=== PATIENT | male | born 1970 | race Caucasian/White ===

== ENCOUNTER 2017-04-04 14:58 | Inpatient (IN) | payer OTHER ==
--- NOTE | 2017-04-04 15:27 | HP ---
CIWA Score - CIWA Score Nausea/Vomitin Muscle Tremors: 3 Anxiety: 3 Agitation: 3 Paroxysmal Sweats: 2 Orientation: 0-Oriented Tacttile Disturbances: 2-Mild Itch/Numbness/Burn Auditory Disturbances: 2-Mild Harshness/Frighten Visual Disturbances: 2-Mild Sensitivity Headache: 2-Mild CIWA-Ar Total Score: 22 Admission ROS [facility] - HPI Chief Complaint: I NEED HELP TO STOP DRINKING ALCOHOL Allergies/Adverse Reactions: Allergies Allergy/AdvReac Type Severity Reaction Status Date / Time No Known Allergies Allergy Verified 04/04/17 15:15 History of Present Illness: THIS 46 YEARS OLD MALE WITH ALCOHOL DEPENDENCE,SEEKING DETOX,LAST TREATMENT [facility] IN 03/05 SEIZURE LAST 03/05 ANXIETY AND DEPRESSION LONGEST PERIOD OF SOBRIETY 3 YEARS Exam Limitations: No Limitations - Ebola screening Have you traveled outside of the country in the last 21 days: No - Review of Systems Constitutional: Chills, Loss of Appetite, Malaise, Night Sweats, Changes in sleep, Weakness EENT: reports: Nose Congestion Respiratory: reports: No Symptoms reported Cardiac: reports: Palpitations GI: reports: Diarrhea, Nausea, Vomiting, Abdominal cramping : reports: No Symptoms Reported Musculoskeletal: reports: Back Pain, Muscle Pain Integumentary: reports: Dryness Neuro: reports: Headache, Tremors Endocrine: reports: No Symptoms Reported Hematology: reports: No Symptoms Reported Psychiatric: reports: Anxious, Depressed Patient History - Patient Medical History Hx Asthma: No Hx Chronic Obstructive Pulmonary Disease (COPD): No Hx Cardiac Disorders: No Hx Hypertension: Yes (on meds.) Hx Seizures: Yes (seizure disorder last 03/05) Hx Diabetes: No Hx Gastrointestinal Disorders: No Hx Genitourinary Disorders: No Hx Sexually Transmitted Disorders: No Hx Renal Disease (ESRD): No Hx Thyroid Disease: No Hx Human Immunodeficiency Virus (HIV): No (LAST 03/05) Hx Hepatitis C: No Hx Depression: Yes (ANXIETY) Hx Suicide Attempt: No Hx Bipolar Disorder: No Hx Schizophrenia: No Other Medical History: NO SUICIDAL,NO HOMICIDAL - Patient Surgical History Past Surgical History: Yes Hx Orthopedic Surgery: Yes (Fx mandible 02/02 [facility]) - PPD History Previous Implant?: Yes Documented Results: Negative w/o proof Implanted On Prior [facility] Admission?: No PPD to be Administered?: Yes - Smoking Cessation Smoking history: Current every day smoker Have you smoked in the past 12 months: Yes Aproximately how many cigarettes per day: 6 Hx Chewing Tobacco Use: No Initiated information on smoking cessation: Yes 'Breaking Loose' booklet given: 04/04/17 - Substance & Tx. History Hx Alcohol Use: Yes Hx Substance Use: No Substance Use Type: Alcohol Hx Substance Use Treatment: Yes (03/05 [facility]) - Substances Abused Alcohol Route: Oral Frequency: Daily Amount used: 2 pints vodka Age of first use: 16 Date of Last Use: 04/04/17 Family Disease History - Family Disease History Family Disease History: Other: Father (ALCOHOL) Admission Physical Exam [facility] - Vital Signs Vital Signs: Vital Signs Temperature 97.2 F L 04/04/17 15:25 Pulse Rate 104 H 04/04/17 15:25 Respiratory Rate 20 04/04/17 15:25 Blood Pressure 138/74 04/04/17 15:25 O2 Sat by Pulse Oximetry (%) - Physical General Appearance: Yes: Moderate Distress, Tremorous, Irritable, Sweating, Anxious HEENTM: Yes: Within Normal Limits, Normal ENT Inspection, Pharynx Normal Respiratory: Yes: Lungs Clear, Normal Breath Sounds Neck: Yes: Within Normal Limits, Supple, Trachea in good position Breast: Yes: Within Normal Limits Cardiology: Yes: Regular Rhythm, Regular Rate, S1, S2, Edema Abdominal: Yes: Within Normal Limits, Normal Bowel Sounds, Non Tender, Flat, Soft Genitourinary: Yes: Within Normal Limits Back: Yes: Muscle Spasm Musculoskeletal: Yes: Back pain, Muscle Pain Extremities: Yes: Within Normal Limits, Normal Inspection, Normal Range of Motion Neurological: Yes: web specialist II-XII NML intact, Alert, Motor Strength 5/5 Integumentary: Yes: Dry Lymphatic: Yes: Within Normal Limits - Diagnostic (1) Alcohol dependence with withdrawal Current Visit: Yes Status: Acute (2) Essential hypertension Current Visit: Yes Status: Acute (3) Seizure Current Visit: Yes Status: Acute (4) Nicotine dependence Current Visit: Yes Status: Acute Cleared for Admission [facility] - Detox or Rehab [facility] Level of Care: Medically Managed Detox Regimen/Protocol: Librium
[2017-04-04 15:28] VITALS: BMI 20.3
[2017-04-04] MEDS ORDERED: LOPERAMIDE HCL 2 MG CAPSULE PO PRN (15:37)
[2017-04-04] MEDS ORDERED: hydrOXYzine PAMOATE 50 MG CAPSULE (FP) PO PRN (15:37)
[2017-04-04] MEDS ORDERED: guaiFENesin/D-METHORPHAN HB 10 ML UNIT-DOSE CUPS PO PRN (15:37)
[2017-04-04] MEDS ORDERED: chlordiazePOXIDE HCL 25 MG CAPSULE PO PRN (15:37)
[2017-04-04] MEDS ORDERED: MAGNESIUM CITRATE 300 ML BOTTLE PO PRN (15:37)
[2017-04-04] MEDS ORDERED: P-EPHED 60MG/TRIPROLIDI 2.5MG TABLET PO PRN (15:37)
[2017-04-04] MEDS ORDERED: IBUPROFEN 400 MG TABLET (FP) PO PRN (15:37)
[2017-04-04] MEDS ORDERED: MAGNESIUM HYDROX 2400MG/30ML ORAL SUSPENSION 30 ML CUP PO PRN (15:37)
[2017-04-04] MEDS ORDERED: ACETAMINOPHEN 325 MG TABLET (FP) PO PRN (15:37)
[2017-04-04] MEDS ORDERED: MENTHOL/PHENOL 1 EACH UD MM PRN (15:37)
[2017-04-04] MEDS ORDERED: MAG HYDROX/AL HYDROX/SIMETH 30 ML UNIT-DOSE CUP PO PRN (15:37)
[2017-04-04] MEDS: chlordiazePOXIDE HCL 25 MG CAPSULE PO SCH ×2 (18:09→22:36)
[2017-04-04] MEDS: NICOTINE 21 MG/24 HOURS TOPICAL PATCH TD SCH (18:10)
[2017-04-04] MEDS: THIAMINE HCL 100 MG TABLET (FP) PO SCH (22:35)
[2017-04-04] MEDS: levETIRAcetam 500 MG TABLET (FP) PO SCH (22:36)
[2017-04-04 22:50] LABS: URINE APPEARANCE CLEAR; URINE BILIRUBIN NEGATIVE (NEGATIVE); URINE BLOOD NEGATIVE (NEGATIVE); URINE COLOR YELLOW; URINE GLUCOSE (UA) NEGATIVE (NEGATIVE); URINE KETONE NEGATIVE (NEGATIVE); URINE LEUK ESTERASE NEGATIVE (NEGATIVE); URINE NITRITE NEGATIVE (NEGATIVE); URINE PROTEIN NEGATIVE (NEGATIVE); URINE UROBILINOGEN NEGATIVE mg/dL (0.2-1.0)
[2017-04-05] MEDS: chlordiazePOXIDE HCL 25 MG CAPSULE PO SCH ×4 (05:47→22:10)
[2017-04-05 10:00] LABS: MCH 31.5 pg (25.7-33.7); MCHC 31.9 g/dl (32.0-35.9); MEAN CELL VOLUME 98.9 fl (80-96); MEAN PLT VOLUME 8.9 fl (7.5-11.1); PLATELET COUNT 245 K/MM3 (134-434); RDW 16.6 % (11.9-15.9); WHITE BLOOD COUNT 9.4 K/mm3 (4.0-10.0)
[2017-04-05] MEDS: amLODIPine BESYLATE 5 MG TABLET (FP) PO SCH (10:24)
[2017-04-05] MEDS: PRENATAL VITAMINS W/ FOLIC ACID TABLET (FP) PO SCH (10:24)
[2017-04-05] MEDS: levETIRAcetam 500 MG TABLET (FP) PO SCH ×2 (10:24→22:10)
[2017-04-05] MEDS: NICOTINE 21 MG/24 HOURS TOPICAL PATCH TD SCH (10:24)
[2017-04-05 10:27] LABS: ALBUMIN 3.6 g/dl (3.4-5.0); ALK PHOS 82 U/L (45-117); ANION GAP 8 (8-16); BILIRUBIN,TOTAL 1.2 mg/dL (0.2-1.0); CALCIUM 8.9 mg/dL (8.5-10.1); CO2 30 mmol/L (21-32); CREATININE 0.8 mg/dL (0.7-1.3); GLUCOSE,RANDOM 77 mg/dL (74-106); SGOT/AST 35 U/L (15-37); SGPT/ALT 32 U/L (12-78); TOT PROT 6.5 g/dl (6.4-8.2)
--- NOTE | 2017-04-05 10:41 | PN ---
[facility] CIWA - CIWA Score Nausea/Vomitin-No Nausea/No Vomiting Muscle Tremors: 4-Moderate,w/Arms Extend Anxiety: 4-Mod. Anxious/Guarded Agitation: 4-Moderately Restless Paroxysmal Sweats: 1-Minimal Palms Moist Orientation: 0-Oriented Tacttile Disturbances: 3-Moderate Itch/Numb/Burn Auditory Disturbances: 0-None Visual Disturbances: 0-None Headache: 0-None Present CIWA-Ar Total Score: 16 S Progress Note (SOAP) Subjective: ANXIETY,SWEATS,NECK PAIN SINCE THIS MORNING-SLEPT WRONGLY, COLD SWEATS. Objective: 04/05/17 10:41 Vital Signs Temperature 98.4 F 04/05/17 09:23 Pulse Rate 69 04/05/17 09:23 Respiratory Rate 18 04/05/17 09:23 Blood Pressure 132/95 04/05/17 09:23 O2 Sat by Pulse Oximetry (%) Laboratory Last Values WBC 9.4 K/mm3 (4.0-10.0) 04/05/17 07:00 RBC 4.42 M/mm3 (4.00-5.60) 04/05/17 07:00 Hgb 13.9 GM/dL (11.7-16.9) 04/05/17 07:00 Hct 43.8 % (35.4-49) 04/05/17 07:00 MCV 98.9 fl (80-96) H 04/05/17 07:00 MCH 31.5 pg (25.7-33.7) 04/05/17 07:00 MCHC 31.9 g/dl (32.0-35.9) L 04/05/17 07:00 RDW 16.6 % (11.9-15.9) H 04/05/17 07:00 Plt Count 245 K/MM3 (134-434) 04/05/17 07:00 MPV 8.9 fl (7.5-11.1) 04/05/17 07:00 Sodium 142 mmol/L (136-145) 04/05/17 07:00 Potassium 4.3 mmol/L (3.5-5.1) 04/05/17 07:00 Chloride 104 mmol/L (98-107) 04/05/17 07:00 Carbon Dioxide 30 mmol/L (21-32) 04/05/17 07:00 Anion Gap 8 (8-16) 04/05/17 07:00 BUN 12 mg/dL (7-18) 04/05/17 07:00 Creatinine 0.8 mg/dL (0.7-1.3) 04/05/17 07:00 Creat Clearance w eGFR > 60 (>60) 04/05/17 07:00 Random Glucose 77 mg/dL (74-106) 04/05/17 07:00 Calcium 8.9 mg/dL (8.5-10.1) 04/05/17 07:00 Total Bilirubin 1.2 mg/dL (0.2-1.0) H 04/05/17 07:00 AST 35 U/L (15-37) 04/05/17 07:00 ALT 32 U/L (12-78) 04/05/17 07:00 Alkaline Phosphatase 82 U/L (45-117) 04/05/17 07:00 Total Protein 6.5 g/dl (6.4-8.2) 04/05/17 07:00 Albumin 3.6 g/dl (3.4-5.0) 04/05/17 07:00 Urine Color Yellow 04/04/17 18:30 Urine Appearance Clear 04/04/17 18:30 Urine pH 8.0 (5.0-8.0) 04/04/17 18:30 Ur Specific [place] 1.023 (1.001-1.035) 04/04/17 18:30 Urine Protein Negative (NEGATIVE) 04/04/17 18:30 Urine Glucose (UA) Negative (NEGATIVE) 04/04/17 18:30 Urine Ketones Negative (NEGATIVE) 04/04/17 18:30 Urine Blood Negative (NEGATIVE) 04/04/17 18:30 Urine Nitrite Negative (NEGATIVE) 04/04/17 18:30 Urine Bilirubin Negative (NEGATIVE) 04/04/17 18:30 Urine Urobilinogen Negative mg/dL (0.2-1.0) 04/04/17 18:30 Assessment: 04/05/17 10:42 WITHDRAWAL SX Plan: CONTINUE DETOX. FLEXERIL DIRECTED.
--- NOTE | 2017-04-05 11:17 | CONSULT ---
[facility] Psychiatric Consult - Data Date of interview: 04/05/17 Admission source: [facility] Identifying data: First admission to [facility] for this 46 y/o [place]-born male seeking detox treatment on for alcohol dependence.Patient is without children,domiciled,unemployed and self sufficient. Substance Abuse History: Discussed in this interview.Mr Crooks admits to daily use of hard liquors.Refer to current [facility] report for details : Smoking history: Current every day smoker. Have you smoked in the past 12 months: Yes. Aproximately how many cigarettes per day: 6. Hx Chewing Tobacco Use: No. Initiated information on smoking cessation: Yes. 'Breaking Loose' booklet given : 04/04/17. - Substance & Tx. History. Hx Alcohol Use: Yes. Hx Substance Use : No. Substance Use Type: Alcohol. Hx Substance Use Treatment: Yes (03/05 [facility]). - Substances Abused. Alcohol. Route: Oral. Frequency: Daily. Amount used: 2 pints vodka. Age of first use: 16. Date of Last Use: 04/04/17 Medical History: Seizure disorder (on levetiracetam),hypertension and recent fracture of right mandible (fall during an ictal episode). Psychiatric History: Patient admits to a remote history of psychiatric hospitalization at [facility].Diagnosed with MDD and totally lost to follow up for many years.Mr Crooks reports past treatment with lexapro. " I have not taken that medication for a long time." No current OPD care.Patient explains that he just came back form [place] where he had taken residence for many years (reportedly returns to [facility] for medical care for his fractured jaw).No reported history of suicide attempts. Physical/Sexual Abuse/Trauma History: Patient denies. Additional Comment: No toxicology results available. Mental Status Exam - Mental Status Exam Alert and Oriented to: Time, Place, Person Cognitive Function: Good Patient Appearance: Disheveled (missing front teeth) Mood: Hopeful, Euthymic Affect: Appropriate, Normal Range Patient Behavior: Fatigued, Appropriate, Cooperative Speech Pattern: Clear, Appropriate Voice Loudness: Normal Thought Process: Intact, Goal Oriented Thought Disorder: Not Present Hallucinations: Denies Suicidal Ideation: Denies Homicidal Ideation: Denies Insight/Judgement: Poor Sleep: Poorly, Difficulty falling asleep Appetite: Good Muscle strength/Tone: Normal Gait/Station: Normal Psychiatric Findings - Problem List ([place] 1, 2,3) (1) Alcohol dependence with withdrawal Current Visit: Yes Status: Acute Qualifiers: Complication of substance-induced condition: uncomplicated Qualified Code(s ): F10.230 - Alcohol dependence with withdrawal, uncomplicated (2) Nicotine dependence Current Visit: Yes Status: Acute Qualifiers: Nicotine product type: cigarettes (3) Insomnia Current Visit: Yes Status: Acute - Initial Treatment Plan Initial Treatment Plan: Psychoeducation.Sleep hygiene.Detoxification in progress.Ambien 10 mg po hs prn.Patirosalindat is informed of risk for parasomnias.He is in agreement with this careplan.Observation.
[2017-04-05] MEDS: CYCLOBENZAPRINE HCL 10 MG TABLET (FP) PO SCH ×2 (14:46→22:10)
[2017-04-05 16:45] LABS: URINE LEUK ESTERASE Negative (NEGATIVE)
[2017-04-05] MEDS: THIAMINE HCL 100 MG TABLET (FP) PO SCH (22:10)
[2017-04-05] MEDS: ZOLPIDEM TARTRATE 10 MG TABLET (PARK CARE ONLY) PO PRN (22:13)
--- NOTE | 2017-04-06 01:55 | EKG ---
Test Reason : Blood Pressure : / mmHG Vent. Rate : 078 BPM Atrial Rate : 078 BPM P-R Int : 140 ms QRS Dur : 078 ms QT Int : 388 ms P-R-T Axes : 062 068 054 degrees QTc Int : 442 ms NORMAL SINUS RHYTHM POSSIBLE LEFT ATRIAL ENLARGEMENT SEPTAL INFARCT , AGE UNDETERMINED ABNORMAL ECG NO PREVIOUS ECGS AVAILABLE Confirmed by FABIEN HOWELL MD ([id number]) on 04/06/2017 1:55:09 AM Referred By: Confirmed By:FABIEN HOWELL MD
[2017-04-06] MEDS: CYCLOBENZAPRINE HCL 10 MG TABLET (FP) PO SCH ×3 (06:05→22:11)
[2017-04-06] MEDS: chlordiazePOXIDE HCL 25 MG CAPSULE PO SCH ×2 (06:05→10:35)
[2017-04-06] MEDS: PRENATAL VITAMINS W/ FOLIC ACID TABLET (FP) PO SCH (10:35)
[2017-04-06] MEDS: levETIRAcetam 500 MG TABLET (FP) PO SCH ×2 (10:35→22:11)
[2017-04-06] MEDS: NICOTINE 21 MG/24 HOURS TOPICAL PATCH TD SCH (10:35)
[2017-04-06] MEDS: amLODIPine BESYLATE 5 MG TABLET (FP) PO SCH (10:36)
--- NOTE | 2017-04-06 12:23 | PN ---
[facility] CIWA - CIWA Score Nausea/Vomitin-No Nausea/No Vomiting Muscle Tremors: 4-Moderate,w/Arms Extend Anxiety: 4-Mod. Anxious/Guarded Agitation: 4-Moderately Restless Paroxysmal Sweats: 1-Minimal Palms Moist Orientation: 0-Oriented Tacttile Disturbances: 3-Moderate Itch/Numb/Burn Auditory Disturbances: 0-None Visual Disturbances: 0-None Headache: 0-None Present CIWA-Ar Total Score: 16 S Progress Note (SOAP) Subjective: ANXIETY,COLD SWEATS,MUSCLE ACHES. Objective: 04/06/17 12:25 Vital Signs Temperature 97.1 F L 04/06/17 09:04 Pulse Rate 86 04/06/17 09:04 Respiratory Rate 20 04/06/17 09:04 Blood Pressure 124/82 04/06/17 09:04 O2 Sat by Pulse Oximetry (%) Laboratory Last Values WBC 9.4 K/mm3 (4.0-10.0) 04/05/17 07:00 RBC 4.42 M/mm3 (4.00-5.60) 04/05/17 07:00 Hgb 13.9 GM/dL (11.7-16.9) 04/05/17 07:00 Hct 43.8 % (35.4-49) 04/05/17 07:00 MCV 98.9 fl (80-96) H 04/05/17 07:00 MCH 31.5 pg (25.7-33.7) 04/05/17 07:00 MCHC 31.9 g/dl (32.0-35.9) L 04/05/17 07:00 RDW 16.6 % (11.9-15.9) H 04/05/17 07:00 Plt Count 245 K/MM3 (134-434) 04/05/17 07:00 MPV 8.9 fl (7.5-11.1) 04/05/17 07:00 Sodium 142 mmol/L (136-145) 04/05/17 07:00 Potassium 4.3 mmol/L (3.5-5.1) 04/05/17 07:00 Chloride 104 mmol/L (98-107) 04/05/17 07:00 Carbon Dioxide 30 mmol/L (21-32) 04/05/17 07:00 Anion Gap 8 (8-16) 04/05/17 07:00 BUN 12 mg/dL (7-18) 04/05/17 07:00 Creatinine 0.8 mg/dL (0.7-1.3) 04/05/17 07:00 Creat Clearance w eGFR > 60 (>60) 04/05/17 07:00 Random Glucose 77 mg/dL (74-106) 04/05/17 07:00 Calcium 8.9 mg/dL (8.5-10.1) 04/05/17 07:00 Total Bilirubin 1.2 mg/dL (0.2-1.0) H 04/05/17 07:00 AST 35 U/L (15-37) 04/05/17 07:00 ALT 32 U/L (12-78) 04/05/17 07:00 Alkaline Phosphatase 82 U/L (45-117) 04/05/17 07:00 Total Protein 6.5 g/dl (6.4-8.2) 04/05/17 07:00 Albumin 3.6 g/dl (3.4-5.0) 04/05/17 07:00 Urine Color Yellow 04/04/17 18:30 Urine Appearance Clear 04/04/17 18:30 Urine pH 8.0 (5.0-8.0) 04/04/17 18:30 Ur Specific [place] 1.023 (1.001-1.035) 04/04/17 18:30 Urine Protein Negative (NEGATIVE) 04/04/17 18:30 Urine Glucose (UA) Negative (NEGATIVE) 04/04/17 18:30 Urine Ketones Negative (NEGATIVE) 04/04/17 18:30 Urine Blood Negative (NEGATIVE) 04/04/17 18:30 Urine Nitrite Negative (NEGATIVE) 04/04/17 18:30 Urine Bilirubin Negative (NEGATIVE) 04/04/17 18:30 Urine Urobilinogen Negative mg/dL (0.2-1.0) 04/04/17 18:30 Ur Leukocyte Esterase Negative (NEGATIVE) 04/04/17 18:30 RPR Titer Nonreactive (NONREACTIVE) 04/05/17 07:00 Assessment: 04/06/17 12:25 WITHDRAWAL SX Plan: CONTINUE DETOX
[2017-04-06] MEDS: chlordiazePOXIDE 5 MG CAPSULE PO SCH ×2 (17:08→22:11)
[2017-04-06] MEDS: THIAMINE HCL 100 MG TABLET (FP) PO SCH (22:11)
[2017-04-06] MEDS: ZOLPIDEM TARTRATE 10 MG TABLET (PARK CARE ONLY) PO PRN (22:11)
[2017-04-07] MEDS: CYCLOBENZAPRINE HCL 10 MG TABLET (FP) PO SCH ×3 (05:43→22:28)
[2017-04-07] MEDS: chlordiazePOXIDE 5 MG CAPSULE PO SCH ×2 (05:43→10:17)
[2017-04-07] MEDS: amLODIPine BESYLATE 5 MG TABLET (FP) PO SCH (10:17)
[2017-04-07] MEDS: PRENATAL VITAMINS W/ FOLIC ACID TABLET (FP) PO SCH (10:17)
[2017-04-07] MEDS: levETIRAcetam 500 MG TABLET (FP) PO SCH ×2 (10:17→22:28)
[2017-04-07] MEDS: NICOTINE 21 MG/24 HOURS TOPICAL PATCH TD SCH (10:18)
--- NOTE | 2017-04-07 11:22 | PN ---
[facility] Progress Note (SOAP) Subjective: DECREASED ANXIETY,SWEATS, TREMORS. Objective: 04/07/17 11:22 Vital Signs Temperature 97.2 F L 04/07/17 09:11 Pulse Rate 88 04/07/17 09:11 Respiratory Rate 18 04/07/17 09:11 Blood Pressure 115/85 04/07/17 09:11 O2 Sat by Pulse Oximetry (%) Laboratory Last Values WBC 9.4 K/mm3 (4.0-10.0) 04/05/17 07:00 RBC 4.42 M/mm3 (4.00-5.60) 04/05/17 07:00 Hgb 13.9 GM/dL (11.7-16.9) 04/05/17 07:00 Hct 43.8 % (35.4-49) 04/05/17 07:00 MCV 98.9 fl (80-96) H 04/05/17 07:00 MCH 31.5 pg (25.7-33.7) 04/05/17 07:00 MCHC 31.9 g/dl (32.0-35.9) L 04/05/17 07:00 RDW 16.6 % (11.9-15.9) H 04/05/17 07:00 Plt Count 245 K/MM3 (134-434) 04/05/17 07:00 MPV 8.9 fl (7.5-11.1) 04/05/17 07:00 Sodium 142 mmol/L (136-145) 04/05/17 07:00 Potassium 4.3 mmol/L (3.5-5.1) 04/05/17 07:00 Chloride 104 mmol/L (98-107) 04/05/17 07:00 Carbon Dioxide 30 mmol/L (21-32) 04/05/17 07:00 Anion Gap 8 (8-16) 04/05/17 07:00 BUN 12 mg/dL (7-18) 04/05/17 07:00 Creatinine 0.8 mg/dL (0.7-1.3) 04/05/17 07:00 Creat Clearance w eGFR > 60 (>60) 04/05/17 07:00 Random Glucose 77 mg/dL (74-106) 04/05/17 07:00 Calcium 8.9 mg/dL (8.5-10.1) 04/05/17 07:00 Total Bilirubin 1.2 mg/dL (0.2-1.0) H 04/05/17 07:00 AST 35 U/L (15-37) 04/05/17 07:00 ALT 32 U/L (12-78) 04/05/17 07:00 Alkaline Phosphatase 82 U/L (45-117) 04/05/17 07:00 Total Protein 6.5 g/dl (6.4-8.2) 04/05/17 07:00 Albumin 3.6 g/dl (3.4-5.0) 04/05/17 07:00 Urine Color Yellow 04/04/17 18:30 Urine Appearance Clear 04/04/17 18:30 Urine pH 8.0 (5.0-8.0) 04/04/17 18:30 Ur Specific [place] 1.023 (1.001-1.035) 04/04/17 18:30 Urine Protein Negative (NEGATIVE) 04/04/17 18:30 Urine Glucose (UA) Negative (NEGATIVE) 04/04/17 18:30 Urine Ketones Negative (NEGATIVE) 04/04/17 18:30 Urine Blood Negative (NEGATIVE) 04/04/17 18:30 Urine Nitrite Negative (NEGATIVE) 04/04/17 18:30 Urine Bilirubin Negative (NEGATIVE) 04/04/17 18:30 Urine Urobilinogen Negative mg/dL (0.2-1.0) 04/04/17 18:30 Ur Leukocyte Esterase Negative (NEGATIVE) 04/04/17 18:30 RPR Titer Nonreactive (NONREACTIVE) 04/05/17 07:00 Assessment: 04/07/17 11:22 WITHDRAWAL SX Plan: CONTINUE DETOX
[2017-04-07] MEDS: chlordiazePOXIDE HCL 10 MG CAPSULE PO SCH ×2 (17:37→22:28)
[2017-04-07] MEDS: ZOLPIDEM TARTRATE 10 MG TABLET (PARK CARE ONLY) PO PRN (22:28)
[2017-04-07] MEDS: THIAMINE HCL 100 MG TABLET (FP) PO SCH (22:28)
[2017-04-08] MEDS: chlordiazePOXIDE HCL 10 MG CAPSULE PO SCH (05:19)
[2017-04-08] MEDS: CYCLOBENZAPRINE HCL 10 MG TABLET (FP) PO SCH (05:19)
[2017-04-08] MEDS: PRENATAL VITAMINS W/ FOLIC ACID TABLET (FP) PO SCH (09:06)
[2017-04-08] MEDS: levETIRAcetam 500 MG TABLET (FP) PO SCH (09:06)
[2017-04-08 09:25] VITALS: BP 121/86; PULSE 100; TEMP 97.9
--- NOTE | 2017-04-08 15:40 | DS ---
[facility] Detox Discharge Summary Admission Date: 04/04/17 Discharge Date: 04/08/17 - History Present History: Alcohol Dependence Pertinent Past History: HTN Seizure disorder - Physical Exam Results Vital Signs: Vital Signs Temperature 97.9 F 04/08/17 09:21 Pulse Rate 100 H 04/08/17 09:21 Respiratory Rate 20 04/08/17 09:21 Blood Pressure 121/86 04/08/17 09:21 O2 Sat by Pulse Oximetry (%) Pertinent Admission Physical Exam Findings: Withdrawal symptoms Laboratory Tests 04/04/17 04/05/17 04/05/17 18:30 07:00 07:00 WBC 9.4 RBC 4.42 Hgb 13.9 Hct 43.8 MCV 98.9 H MCH 31.5 MCHC 31.9 L RDW 16.6 H Plt Count 245 MPV 8.9 Sodium 142 Potassium 4.3 Chloride 104 Carbon Dioxide 30 Anion Gap 8 BUN 12 Creatinine 0.8 Creat Clearance w eGFR > 60 Random Glucose 77 Calcium 8.9 Total Bilirubin 1.2 H AST 35 ALT 32 Alkaline Phosphatase 82 Total Protein 6.5 Albumin 3.6 Urine Color Yellow Urine Appearance Clear Urine pH 8.0 Ur Specific [place] 1.023 Urine Protein Negative Urine Glucose (UA) Negative Urine Ketones Negative Urine Blood Negative Urine Nitrite Negative Urine Bilirubin Negative Urine Urobilinogen Negative Ur Leukocyte Esterase Negative RPR Titer 04/05/17 07:00 WBC RBC Hgb Hct MCV MCH MCHC RDW Plt Count MPV Sodium Potassium Chloride Carbon Dioxide Anion Gap BUN Creatinine Creat Clearance w eGFR Random Glucose Calcium Total Bilirubin AST ALT Alkaline Phosphatase Total Protein Albumin Urine Color Urine Appearance Urine pH Ur Specific [place] Urine Protein Urine Glucose (UA) Urine Ketones Urine Blood Urine Nitrite Urine Bilirubin Urine Urobilinogen Ur Leukocyte Esterase RPR Titer Nonreactive Labs noted - Treatment Hospital Course: Detox Protocol Followed, Detoxed Safely, Responded well, Discharged Condition Good, Rehab Referral Accepted - Medication Discharge Medications: Ambulatory Orders Amlodipine Besylate [Norvasc -] 5 mg PO DAILY 04/04/17 Levetiracetam [Keppra -] 500 mg PO BID 04/04/17 - Diagnosis (1) Depression Status: Chronic (2) Anxiety Status: Chronic (3) Alcohol dependence with withdrawal Status: Acute Qualifiers: Complication of substance-induced condition: uncomplicated Qualified Code(s ): F10.230 - Alcohol dependence with withdrawal, uncomplicated (4) Nicotine dependence Status: Chronic Qualifiers: Nicotine product type: cigarettes (5) Essential hypertension Status: Chronic (6) Seizure Status: Chronic (7) Insomnia Status: Acute - AMA Did Patient Leave Against Medical Advice: No (F/U with PCP in 1-2 weeks or sooner if warranted)
== END 2017-04-08 09:30 | disposition home or self-care (01) | DRG 775 ==
LOC: YASAS 14:58 → Y3N 16:06
PROVIDERS: ADMIT Internal Medicine; ATTEND Internal Medicine
PROC: HZ2ZZZZ Detoxification Services for Substance Abuse Treatment (ICD-10-PCS; principal; 2017-04-04)
DX: F10.230 Alcohol dependence with withdrawal, uncomplicated (principal); F17.210 Nicotine dependence, cigarettes, uncomplicated; F41.9 Anxiety disorder, unspecified; F32.9 Major depressive disorder, single episode, unspecified; I10 Essential (primary) hypertension; G47.00 Insomnia, unspecified; G40.909 Epilepsy, unspecified, not intractable, without status epilepticus
CPT/HCPCS: 36415; 80053; 81003; 85027; 86593; 93005; 93010